=== PATIENT | male | born 1955 | race Caucasian/White ===

== ENCOUNTER 2019-11-29 10:58 | Emergency (ER) | payer MEDICARE ==
[2019-11-29] MEDS ORDERED: Adacel (T-DAP) 0.5 ML SYRINGE ONE (11:09)
[2019-11-29] MEDS ORDERED: Amoxicillin/Potassium Clav 875 MG TAB ONE (11:19)
== END 2019-11-29 11:44 | disposition home or self-care (01) ==
LOC: BURERS 10:58
DX: S61.452A Open bite of left hand, initial encounter (principal); Z71.6 Tobacco abuse counseling; W54.0XXA Bitten by dog, initial encounter
CPT/HCPCS: 90471; 90715; 99406